=== PATIENT | male | born 1975 | race African-American/Black ===

== ENCOUNTER 2024-10-24 12:18 | Inpatient (IN) | payer OTHER ==
[2024-10-24 12:53] VITALS: BMI 32.3
[2024-10-24] MEDS ORDERED: POLYETHYLENE GLYCOL (HEALTHYLAX) 3350 17 GM PACKET PO PRN (13:56)
[2024-10-24] MEDS ORDERED: IBUPROFEN 400 MG TABLET (FP) PO PRN (13:56)
[2024-10-24] MEDS ORDERED: MAGNESIUM HYDROX 2400MG/30ML ORAL SUSPENSION 30 ML CUP PO PRN (13:56)
[2024-10-24] MEDS ORDERED: MAG HYDROX/AL HYDROX/SIMETH 30 ML UNIT-DOSE CUP PO PRN (13:56)
[2024-10-24] MEDS ORDERED: LOPERAMIDE HCL 2 MG CAPSULE PO PRN (13:56)
[2024-10-24] MEDS ORDERED: BENZONATATE 200 MG CAPSULE PO PRN (13:56)
[2024-10-24] MEDS ORDERED: BENZOCAINE/MENTHOL (CHLORASEPTIC ) LOZENGE MM PRN (13:56)
[2024-10-24] MEDS ORDERED: guaiFENesin 600 MG TABLET.ER (FP) PO PRN (13:56)
[2024-10-24] MEDS ORDERED: NALOXONE (NARCAN) HCL 4 MG/0.1 ML SPRAY NS PRN (13:56)
[2024-10-24] MEDS ORDERED: ACETAMINOPHEN 325 MG TABLET (FP) PO PRN (13:56)
[2024-10-24] MEDS ORDERED: INSULIN (NOVOLOG) ASPART 100 UNITS/ML 10ML VIAL ONE (15:30)
[2024-10-24] MEDS: PRENATAL VITAMINS W/ FOLIC ACID TABLET (FP) PO SCH (15:31)
[2024-10-24] MEDS: INSULIN (NOVOLOG) ASPART 100 UNITS/ML 10ML VIAL SQ ONE (15:33)
[2024-10-24] MEDS ORDERED: TUBERCULIN PPD 5 TU/0.1ML VIAL ID ONE (16:39)
[2024-10-24] MEDS: INSULIN ASPART SLIDING SCALE (NOVOLOG) 1 VIAL SQ SCH (17:19)
[2024-10-24] MEDS: TUBERCULIN PPD 5 TU/0.1ML SYRINGE (IN PATIENT USE ONLY) ID ONE (17:20)
[2024-10-24] MEDS: MELATONIN 5 MG TABLETS PO SCH (21:26)
[2024-10-24] MEDS: THIAMINE 100 MG TABLET PO SCH (21:26)
[2024-10-24] MEDS: ATORVASTATIN CA 10 MG TABLET (FP) PO SCH (21:27)
[2024-10-25] MEDS: hydrOXYzine PAMOATE 25 MG CAPSULE (FP) PO PRN (06:01)
[2024-10-25] MEDS ORDERED: INSULIN ASPART SLIDING SCALE (NOVOLOG) 1 VIAL SQ ONE ×3 (06:06→15:52)
[2024-10-25] MEDS: LISINOPRIL 10 MG TABLET PO SCH (10:57)
[2024-10-25 11:24] LABS: PH,URINE 5.5 (5.0-8.0); URINE APPEARANCE CLEAR; URINE BILIRUBIN NEGATIVE (NEGATIVE); URINE COLOR YELLOW; URINE GLUCOSE (UA) 3+ (NEGATIVE); URINE KETONE NEGATIVE (NEGATIVE); URINE LEUK ESTERASE NEGATIVE (NEGATIVE); URINE NITRITE NEGATIVE (NEGATIVE); URINE PROTEIN NEGATIVE (NEGATIVE); URINE UROBILINOGEN 0.2 mg/dL (0.2-1.0)
[2024-10-25 11:28] LABS: HEMATOCRIT 40.7 % (40.1-51.0); HEMOGLOBIN 13.2 g/dL (13.7-17.5); MCHC 32.4 g/dl (32.3-36.5); MEAN CELL VOLUME 78.4 fl (79.0-92.2); MEAN PLT VOLUME 10.4 fl (9.4-12.4); PLATELET COUNT 283 x10^3/uL (163-337); RDW 12.8 % (12.1-15.9)
[2024-10-25 13:32] LABS: SYPHILIS W/ RPR CONF NON-REACTIVE (NONREACTIVE)
[2024-10-25 14:01] LABS: HCV DIAGNOSTIC IN-HOUSE W/RFLX NON-REACTIVE (NONREACTIVE)
[2024-10-25 14:35] LABS: CHLORIDE 101 mmol/L (98-107); POTASSIUM 4.3 mmol/L (3.5-5.1); SODIUM 135 mmol/L (136-145)
[2024-10-25 14:41] LABS: CALCIUM 9.9 mg/dL (8.5-10.1)
[2024-10-25 14:42] LABS: ANION GAP 7 mmol/L (4-13); BLOOD UREA NITROGEN 13.1 mg/dL (7-18); CO2 27 mmol/L (21-32)
[2024-10-25 14:44] LABS: CREATININE 1.2 mg/dL (0.55-1.3); SGOT/AST 13 U/L (15-37); SGPT/ALT 24 U/L (13-61)
[2024-10-25 14:46] LABS: BILIRUBIN,TOTAL 0.7 mg/dL (0.2-1); TOT PROT 7.4 g/dl (6.4-8.2)
[2024-10-25 14:47] LABS: ALK PHOS 112 U/L (45-117)
[2024-10-25 15:01] LABS: GLUCOSE,RANDOM 406 mg/dL (74-106)
[2024-10-25] MEDS ORDERED: INSULIN ASPART SLIDING SCALE (NOVOLOG) 1 VIAL SQ SCH (16:30)
[2024-10-26] MEDS ORDERED: INSULIN ASPART SLIDING SCALE (NOVOLOG) 1 VIAL SQ ONE (11:56)
[2024-10-26] MEDS: LISINOPRIL 10 MG TABLET PO SCH (21:38)
[2024-10-27] MEDS ORDERED: INSULIN ASPART SLIDING SCALE (NOVOLOG) 1 VIAL SQ ONE (07:47)
[2024-10-28] MEDS ORDERED: INSULIN ASPART SLIDING SCALE (NOVOLOG) 1 VIAL SQ ONE (07:45)
[2024-10-29] MEDS ORDERED: INSULIN ASPART SLIDING SCALE (NOVOLOG) 1 VIAL SQ ONE (07:35)
[2024-10-29] MEDS: FLUTICASONE PROP 0.05% 16 GM NASAL SPRAY NS SCH (21:06)
[2024-10-30] MEDS ORDERED: INSULIN ASPART SLIDING SCALE (NOVOLOG) 1 VIAL SQ ONE ×2 (11:01→16:23)
[2024-10-30] MEDS: metFORMIN HCL 500 MG TABLET (FP) PO SCH (16:26)
[2024-10-31] MEDS ORDERED: INSULIN ASPART SLIDING SCALE (NOVOLOG) 1 VIAL SQ ONE ×3 (06:32→16:30)
[2024-10-31] MEDS ORDERED: BENZOCAINE 20 % GEL TUBE MM PRN (17:15)
[2024-10-31] MEDS: CLINDAMYCIN HCL 150 MG CAPSULE (FP) PO SCH (21:04)
[2024-10-31] MEDS: CLINDAMYCIN PHOSPHATE 1% TOPICAL GEL 30 GM TUBE TP SCH (21:05)
[2024-11-01] MEDS ORDERED: INSULIN ASPART SLIDING SCALE (NOVOLOG) 1 VIAL SQ ONE (06:30)
[2024-11-01] MEDS: ALBUTEROL SO4 HFA INHALER IH PRN (11:20)
[2024-11-01] MEDS: IBUPROFEN 600 MG TABLET (FP) PO PRN (14:29)
[2024-11-02 06:47] VITALS: RESP 18; TEMP 97.5
[2024-11-02 09:21] VITALS: BP 138/85; PULSE 78
== END 2024-11-02 11:47 | disposition home or self-care (01) | DRG 772 ==
LOC: YASAS 12:18 → Y3W 15:25
PROVIDERS: ADMIT Psychiatry & Neurology Pain Medicine; ATTEND Psychiatry & Neurology Pain Medicine
PROC: HZ42ZZZ Group Counseling for Substance Abuse Treatment, Cognitive-Behavioral (ICD-10-PCS; principal; 2024-10-24)
DX: F14.20 Cocaine dependence, uncomplicated (principal); F12.20 Cannabis dependence, uncomplicated; E78.5 Hyperlipidemia, unspecified; I10 Essential (primary) hypertension; I25.2 Old myocardial infarction; J45.909 Unspecified asthma, uncomplicated; E11.9 Type 2 diabetes mellitus without complications; Z79.4 Long term (current) use of insulin; K04.7 Periapical abscess without sinus; R94.31 Abnormal electrocardiogram [ECG] [EKG]; Z59.00 Homelessness unspecified
CPT/HCPCS: 36415; 80053; 80305; 80307; 81003; 82962; 84484; 85027; 86780; 86803; 87811; 93005; 93010